=== PATIENT | male | born 1960 | race Caucasian/White ===

== ENCOUNTER 2024-02-03 13:22 | Outpatient (CLI) | payer BC, SELFPAY ==
--- NOTE | ~2024-02-03 | NM_ITS ---
EXAMINATION: NM thyroid scan w uptake DATE: 02/04/2024 14:27 INDICATION: Hyperthyroidism. COMPARISON: None. TECHNIQUE: 0.357 mCi I-[id number] was administered orally. Scintigraphic images of the thyroid gland were o btained at 24 hours. Thyroid uptake was calculated by the technologist. FINDINGS: The thyroid uptake is 29% (normal 10-30%), with the right lobe measuring 18% uptake and the left 12%. There is no focal area of decreased or increased activity to suggest hypofunctioning or hyperfunctio zak nodule. IMPRESSION: 1. Normal thyroid scintigraphy and 24-hour iodine uptake. Reviewed, dictated and finalized at location A.
== END 2024-02-03 13:23 | disposition home or self-care (01) ==
PROVIDERS: PCP Family Medicine; Visit Provider Internal Medicine
DX: E05.90 Thyrotoxicosis, unspecified without thyrotoxic crisis or storm (principal)
CPT/HCPCS: 78014; A9516